=== PATIENT | male | born 1985 | race African-American/Black ===

== ENCOUNTER 2017-04-12 18:01 | Emergency (ER) | payer OTHER ==
[~2017-04-12] VITALS: Ht 180.3 cm; Wt 86.4 kg
[2017-04-12] MEDS ORDERED: KETOROLAC 60 MG/2 ML VIAL (J1885) IM ONE (19:00)
[2017-04-12] MEDS ORDERED: CYCL10TA PO (20:33)
[2017-04-12] MEDS ORDERED: NORCOTAB PO (20:34)
[2017-04-12 20:51] VITALS: BP 140/87
== END 2017-04-12 21:01 | disposition home or self-care (01) ==
LOC: M ED 18:01
DX: S33.5XXA Sprain of ligaments of lumbar spine, initial encounter (principal); X58.XXXA Exposure to other specified factors, initial encounter; Y92.89 Other specified places as the place of occurrence of the external cause; Y93.89 Activity, other specified; Y99.9 Unspecified external cause status
CPT/HCPCS: 96372; 99282; J1885

== ENCOUNTER 2017-07-06 10:33 | Emergency (ER) | payer OTHER ==
[~2017-07-06] VITALS: Ht 180.3 cm; Wt 86.8 kg
[2017-07-06 10:33] VITALS: BP 145/88
[~2017-07-06 10:33] MED LIST: CYCL10TA PO; NORCOTAB PO
[2017-07-06] MEDS ORDERED: CYCL10TA PO (11:13)
[2017-07-06] MEDS ORDERED: IBUP80TA PO (11:13)
== END 2017-07-06 11:34 | disposition home or self-care (01) ==
LOC: M ED 10:33
DX: M62.830 Muscle spasm of back (principal)